=== PATIENT | male | born 1990 | race Caucasian/White ===

== ENCOUNTER 2017-12-29 13:41 | Emergency (ER) | payer SELFPAY | END 2017-12-29 14:15 | disposition home or self-care (01) | LOC: BURERS 13:41 | DX: M54.5 Low back pain (principal); F17.210 Nicotine dependence, cigarettes, uncomplicated; X50.1XXA Overexertion from prolonged static or awkward postures, initial encounter | CPT/HCPCS: 99283 ==

== ENCOUNTER 2019-04-10 23:10 | Emergency (ER) | payer SELFPAY | END 2019-04-10 23:33 | disposition home or self-care (01) | LOC: BURERS 23:10 | DX: M65.4 Radial styloid tenosynovitis [de Quervain] (principal); F17.210 Nicotine dependence, cigarettes, uncomplicated | CPT/HCPCS: 99283 ==

== ENCOUNTER 2023-04-14 00:15 | Emergency (ER) | payer SELFPAY | END 2023-04-14 01:04 | disposition home or self-care (01) | LOC: BURERS 00:15 | DX: S62.344A Nondisplaced fracture of base of fourth metacarpal bone, right hand, initial encounter for closed fracture (principal); F17.210 Nicotine dependence, cigarettes, uncomplicated; W22.8XXA Striking against or struck by other objects, initial encounter | CPT/HCPCS: 29125 ==